=== PATIENT | male | born 1960 | race Caucasian/White ===

== ENCOUNTER 2021-08-28 16:55 | Inpatient (IN) | payer OTHER ==
[~2021-08-28] VITALS: Ht 188 cm; Wt 136.1 kg
[~2021-08-28 16:55] MED LIST: ATOR10 PO; HYDMOR2 PO; OLME5TAB PO
[2021-08-28 18:05] LABS: BASOPHILS PERCENT AUTO 1 % (0-2); EOSINOPHILS ABSOLUTE AUTO 0.25 K/mm3 (0.00-0.68); EOSINOPHILS PERCENT AUTO 2 % (0-6); Hematocrit 49.5 % (37.0-53.0); Hemoglobin 16.7 g/dL (13.5-17.5); IMMATURE GRAN ABSOLUTE AUTO 0.02 K/mm3 (0.00-0.10); IMMATURE GRAN PERCENT AUTO 0 % (0-1); LYMPHOCYTES ABSOLUTE AUTO 2.99 K/mm3 (0.84-5.20); LYMPHOCYTES PERCENT AUTO 29 % (21-46); MONOCYTES ABSOLUTE AUTO 1.37 K/mm3 (0.16-1.47); MONOCYTES PERCENT AUTO 13 % (4-13); Mean Corpuscular HGB 31.1 pg (26.0-34.0); Mean Corpuscular HGB Conc 33.7 g/dL (31.5-36.5); Mean Corpuscular Volume 92 fL (80-100); Mean Platelet Volume 9.9 fL (9.1-12.4); NEUTROPHILS ABSOLUTE AUTO 5.64 K/mm3 (1.96-9.15); NEUTROPHILS PERCENT AUTO 54 % (41-73); Platelet Count 347 K/mm3 (150-400); RDW Coefficient Variation 14.6 % (11.7-14.2); RDW Standard Deviation 49.4 fL (35.1-46.3); Red Blood Cell Count 5.37 M/mm3 (4.30-5.90); White Blood Cell Count 10.37 K/mm3 (4.00-11.30)
[2021-08-28] MEDS ORDERED: LOSA50 PO (18:18)
[2021-08-28 18:25] LABS: Alanine Aminotransfer (ALT/SGP 34 U/L (12-78); Albumin, Blood 3.8 g/dL (3.4-5.0); Albumin/Globulin Ratio 0.9 (0.8-1.8); Alk Phos 84 U/L (50-136); Anion Gap 5 mmol/L (6-16); Aspartate Aminotrans (AST/SGOT 29 U/L (12-37); Bilirubin, Total 0.5 mg/dL (0.1-1.0); Blood Urea Nitrogen 14 mg/dL (8-24); Bun/Creatinine Ratio 19.5 (12.0-20.0); CO2, Blood 27 mmol/L (21-32); Calcium, Blood 9.4 mg/dL (8.5-10.1); Chloride, Blood 108 mmol/L (98-108); Creatinine, Blood 0.72 mg/dL (0.60-1.20); Globulin, Blood 4.3 g/dL (2.2-4.0); Glomerular Filtration Rate >60 (60-); Glucose, Blood 101 mg/dL (70-99); Potassium, Blood 3.9 mmol/L (3.5-5.5); Sodium, Blood 140 mmol/L (136-145); Total Protein, Blood 8.1 g/dL (6.4-8.2)
[2021-08-28 18:35] LABS: Troponin I 0.497 ng/mL (0.000-0.040)
[2021-08-28] MEDS ORDERED: ESCITALOPRAM OXA5 MG PO (20:55)
[2021-08-29 01:38] LABS: Influenza A, PCR NEGATIVE (NEGATIVE); Influenza B, PCR NEGATIVE (NEGATIVE); Resp Syncytial Virus, PCR NEGATIVE (NEGATIVE); SARS-Cov-2 (COVID-19) PCR, MMC NEGATIVE (NEGATIVE)
[2021-08-29 08:48] LABS: CHOL/HDL RATIO 4.2; Cholesterol 246 mg/dL (50-200); HDL Cholesterol 59 mg/dL (>39); LDL/HDL RATIO 2.6; Low Density Lipoprotein Chol 154 mg/dL (0-110); Triglycerides 166 mg/dL (30-160); Very Low Density Lipoprot Chol 33 mg/dL (6-32)
[2021-08-29 11:00] LABS: International Normalized Ratio 0.99; Prothrombin Time Results 10.4 Sec (9.7-11.5)
--- NOTE | 2021-08-29 14:12 | NUR ---
Pt arrived from the rn cardiac cath, awake, alert, oriented and at bedside. Right wrist TR site without bleeding, bruising, hematoma. Two TR bands are in place, and in report we were told that they each have 20 cc air in them. Fingers of right hand are pink, cap refill is 4-5 seconds, and pt denies any numbness/tingling in the hand or fingers. He was assisted to sit on the side of the bed to use the urinal. Denied any dizzyness/lightheadedness. Given food and drink. vital signs are stable. Denies any chest pain/discomfort/tightness and denies dyspnea.
--- NOTE | 2021-08-29 15:27 | NUR ---
Pt c/o his arm aching, just proximal to the proximal TR band. total of 4 cc air removed slowly from this TR band, and pt stated relief from the pain. Site remains without bleeding, hematoma, bruising/swelling. His remains at the bedside. White immobilizer board is in place. Pt has been eating and drinking with good appetite.
--- NOTE | 2021-08-29 16:48 | NUR ---
Pt appears to be sleeping, lying on his back, snoring. Sp02 91-96%.
--- NOTE | 2021-08-29 17:44 | NUR ---
Proximal TR band was fully deflated at this time. Distal TR band deflated by 5 cc. No bleeding, no hematoma, no swelling. Bruising noted at the puncture site over the radial artery. Pt reports that the right arm is feeling more comfortable.
--- NOTE | 2021-08-29 18:59 | NUR ---
total of 12 cc removed from distal Tr band.
--- NOTE | 2021-08-29 19:00 | NUR ---
Pt states that his right arm is feeling fine. NO evidence of hematoma, bleeding, swelling. Small amount of bruising apparent under the distal TR band.
--- NOTE | 2021-08-30 02:00 | NUR ---
TR BAND WAS FULLY DEFLATED AT 0020 AND WAS TAKEN OFF AT 0200. TEGERDERM WAS PLACED ON THE SITE. WILL CONTINUE TO MONITOR.
--- NOTE | 2021-08-30 04:40 | NUR ---
SHIFT SUMMARY PATIENT IS RESTING COMFORTABLY IN BED. BED IS IN LOW POSITION. CALL LIGHT IS IN REACH. VITALS WERE STABLE ALL NIGHT. NO ACUTE CHANGES DURING MY SHIFT. PATIENT HAD 2 STENTS PLACED YESTERDAY. THE TR BAND WAS TAKEN OFF AND THE SITE IS C/D/I. WILL CONTINUE TO MONITOR THE SITE. THE PATIENT IS INDEPENDENT AND WALK THE BATHROOM. TELE MONITORING NSR IN THE 60S. NO COMPLAINTS OF PAIN. WILL CONTINUE TO MONITOR. REPORT WILL BE GIVEN TO DAYSHIFT RN.
[2021-08-30 06:04] LABS: BASOPHILS ABSOLUTE AUTO 0.08 K/mm3 (0.00-0.23); BASOPHILS PERCENT AUTO 1 % (0-2); EOSINOPHILS ABSOLUTE AUTO 0.23 K/mm3 (0.00-0.68); EOSINOPHILS PERCENT AUTO 2 % (0-6); Hematocrit 47.2 % (37.0-53.0); Hemoglobin 15.9 g/dL (13.5-17.5); IMMATURE GRAN ABSOLUTE AUTO 0.04 K/mm3 (0.00-0.10); IMMATURE GRAN PERCENT AUTO 0 % (0-1); LYMPHOCYTES ABSOLUTE AUTO 2.21 K/mm3 (0.84-5.20); LYMPHOCYTES PERCENT AUTO 22 % (21-46); MONOCYTES ABSOLUTE AUTO 1.46 K/mm3 (0.16-1.47); MONOCYTES PERCENT AUTO 15 % (4-13); Mean Corpuscular HGB 31.4 pg (26.0-34.0); Mean Corpuscular HGB Conc 33.7 g/dL (31.5-36.5); Mean Corpuscular Volume 93 fL (80-100); Mean Platelet Volume 10.1 fL (9.1-12.4); NEUTROPHILS ABSOLUTE AUTO 5.98 K/mm3 (1.96-9.15); NEUTROPHILS PERCENT AUTO 60 % (41-73); Platelet Count 317 K/mm3 (150-400); RDW Coefficient Variation 14.6 % (11.7-14.2); RDW Standard Deviation 50.3 fL (35.1-46.3); Red Blood Cell Count 5.06 M/mm3 (4.30-5.90)
[2021-08-30 06:23] LABS: Anion Gap 6 mmol/L (6-16); Blood Urea Nitrogen 11 mg/dL (8-24); Bun/Creatinine Ratio 15.1 (12.0-20.0); CO2, Blood 23 mmol/L (21-32); Calcium, Blood 8.1 mg/dL (8.5-10.1); Chloride, Blood 109 mmol/L (98-108); Creatinine, Blood 0.73 mg/dL (0.60-1.20); Glomerular Filtration Rate >60 (60-); Glucose, Blood 94 mg/dL (70-99); Potassium, Blood 4.1 mmol/L (3.5-5.5); Sodium, Blood 138 mmol/L (136-145)
--- NOTE | 2021-08-30 08:06 | NUR ---
pT STATES IT IS much easier to breathe this morning than before his PCI. Ambulatory to the bathroom, without difficulty. Sitting up eating breakfast. Right wrist site without bleeding, bruising. swelling. Small dime sized hematoma over the puncture site, covered with tegederm dressing upon assesment. Vital signs stable.
[2021-08-30] MEDS ORDERED: ATORVASTATIN CA80 M1 PO (11:47)
[2021-08-30] MEDS ORDERED: ASPI81CH PO (11:47)
[2021-08-30] MEDS ORDERED: PLAVIX75 MG PO (11:48)
[2021-08-30] MEDS ORDERED: METO50ER PO (11:49)
--- NOTE | 2021-08-30 15:43 | NUR ---
Call from Dr. Lees to say that the pt should have been discharged on Cozaar 100 mg po daily, the hospital dose which he took this morning. I called this prescription into [facility], and then called and spoke with Anibal to inform him of the change. He verbalized understanding of my instructions to check his blood pressure and pulse before taking his medications, and to NOT take the cozaar if his systolic blood pressure is less than 100mmHG. He will keep a log of his vital signs and take this record with him to his appointment with early next week, which he has already made.
== END 2021-08-30 12:27 | disposition home or self-care (01) | DRG 247 ==
LOC: ER 16:55 → ERHOLD 16:56 → PCU 08-29 11:24
PROVIDERS: Emergency Medicine; Family Medicine; Internal Medicine; Internal Medicine Cardiovascular Disease; Physician Assistant; ADMIT Internal Medicine
PROC: 4A023N7 Measurement of Cardiac Sampling and Pressure, Left Heart, Percutaneous Approach (ICD-10-PCS; principal; 2021-08-29)
PROC: B2111ZZ Fluoroscopy of Multiple Coronary Arteries using Low Osmolar Contrast (ICD-10-PCS; 2021-08-29)
PROC: 027135Z Dilation of Coronary Artery, Two Arteries with Two Drug-eluting Intraluminal Devices, Percutaneous Approach (ICD-10-PCS; 2021-08-29)
PROC: 3E02340 Introduction of Influenza Vaccine into Muscle, Percutaneous Approach (ICD-10-PCS; 2021-08-29)
DX: I21.4 Non-ST elevation (NSTEMI) myocardial infarction (principal); E78.5 Hyperlipidemia, unspecified; I16.0 Hypertensive urgency; I10 Essential (primary) hypertension; Z20.822 Contact with and (suspected) exposure to COVID-19; E78.00 Pure hypercholesterolemia, unspecified; Z79.899 Other long term (current) drug therapy; E66.01 Morbid (severe) obesity due to excess calories; Z79.82 Long term (current) use of aspirin; Z68.38 Body mass index [BMI] 38.0-38.9, adult; I25.10 Atherosclerotic heart disease of native coronary artery without angina pectoris; Z23 Encounter for immunization
CPT/HCPCS: 0241U; 36415; 71046; 80048; 80053; 80061; 83690; 83880; 84484; 85025; 85347; 85379; 85610; 86850; 86900; 86901; 93005; 93010; 93458; 96372; 99152; 99153; 99285-25; A9270; C1725; C1769; C1874; C1887; C1894; C8929; C9600; J0461; J1644; J1650; J2250; J2370; J3010; J7030; J7040; J7050; Q9957; Q9967